=== PATIENT | male | born 1955 | race Caucasian/White ===

== ENCOUNTER 2021-09-23 12:45 | Day surgery (SDC) | payer MEDICARE ==
[~2021-09-23] VITALS: Ht 185.4 cm; Wt 115.0 kg
[2021-09-23] MEDS ORDERED: AMLODIPINE-OLM1 EAC2 PO (12:56)
[2021-09-23] MEDS ORDERED: LIPITOR20 MG (12:57)
--- NOTE | 2021-09-23 15:54 | NUR ---
[facility] PACU WIDE AWAKE WITH NO C/O'S. ABD SOFT. 1553 REPORT GIVEN TO JAZMINE SANTOS. 1555 DR AT BEDSIDE. ALL QUESTIONS ANSWERED.
--- NOTE | 2021-09-26 14:40 | OR ---
[facility] [address] [place], [place] [address] Signed DATE OF OPERATION: 09/23/2021 SURGEON: Yeimi Lai MD PREOPERATIVE DIAGNOSIS: Colon surveillance. POSTOPERATIVE DIAGNOSES: 1. Polyp at 40 cm (excised). 2. Scattered diverticula. PROCEDURE: Total colonoscopy to cecum with cold snare polypectomy x1 at 40 cm. ANESTHESIA: Intravenous sedation, fentanyl 100 mcg and Versed 4 mg. INDICATION: This 66-year-old white man is a patient DrCatherine Mcneil in [place], [place]. He last underwent colonoscopy in [place] [address] Channing Blount in the past as well. He says he has never had polyps on colonoscopy before. He is admitted at this time to undergo colonoscopy. He understands the risks of bleeding, infection, and perforation. Notably, he is symptom free currently and has no family history of colon cancer. FINDINGS: The prep was excellent. Complete colonoscopy was undertaken to the cecum without question. He had scattered diverticula throughout the colon, but very few in aggregate. There was a small polyp at 40 cm, which was excised with cold snare technique. There were no other findings of concern. DESCRIPTION OF PROCEDURE: The patient was brought to the endoscopy suite and placed in lateral decubitus position given intravenous sedation to the point of slurred speech and nystagmus. Digital rectal examination was normal. An Olympus videocolonoscope was passed in the rectum and manipulated throughout the colon noting a few scattered diverticula. Ultimately, the scope was passed into the cecum, which was insufflated with air and irrigation undertaken. The appendiceal orifice and ileocecal valve were normal. Passage of the scope into the ileum was Electronically Signed By: YEIMI LAI MD 09/26/21 1440 PATIENT NAME: YEIMI THOMAS OPERATIVE REPORT DATE OF : 55 REPORT #: [id number] PHYSICIAN: YEIMI LIA MD PCP: YEIMI MCNEIL MD REPORT IS CONFIDENTIAL AND NOT TO BE RELEASED WITHOUT AUTHORIZATION [facility] [address] [place], [place] [address] Signed accomplished without problem showing normal ileal mucosa. The scope was withdrawn from that point. Examination throughout showed no sign of abnormality until about 40 cm from the anal verge where a small sessile polyp was noted. This may represent hyperplasia. It was excised with cold snare technique without problem and passed for pathology. Further withdrawal of scope showed no other abnormality, only a few scattered diverticula. Retroflexed view of the rectum was normal. Scope was removed. The patient was taken to the recovery room in good condition concluding diagnosis polyps x1 and scattered diverticula. PLAN: Recommend repeat colonoscopy in 5 years or sooner if clinically indicated. He will return to the ongoing care of Dr. Mcneil in [place]. MD MATTY Petit/MACKENZIE /[id number] cc: Yeimi Mcneil MD Copies: YEIMI MCNEIL MD ~ Electronically Signed By: YEIMI LAI MD 09/26/21 8008 PATIENT NAME: YEIMI THOMAS OPERATIVE REPORT DATE OF : 55 REPORT #: [id number] PHYSICIAN: YEIMI LAI MD PCP: YEIMI MCNEIL MD REPORT IS CONFIDENTIAL AND NOT TO BE RELEASED WITHOUT AUTHORIZATION
== END 2021-09-23 16:10 | disposition home or self-care (01) ==
LOC: OPS 12:45 → DS 12:45 → OPS 14:00
PROVIDERS: ATTEND Surgery
PROC: 0DBE8ZX Excision of Large Intestine, Via Natural or Artificial Opening Endoscopic, Diagnostic (ICD-10-PCS; principal; 2021-09-23 14:00)
DX: Z12.11 Encounter for screening for malignant neoplasm of colon (principal); D12.6 Benign neoplasm of colon, unspecified; K57.30 Diverticulosis of large intestine without perforation or abscess without bleeding; Z88.8 Allergy status to other drugs, medicaments and biological substances; Z91.040 Latex allergy status; E78.5 Hyperlipidemia, unspecified; E66.01 Morbid (severe) obesity due to excess calories; I10 Essential (primary) hypertension; Z68.36 Body mass index [BMI] 36.0-36.9, adult; Z85.828 Personal history of other malignant neoplasm of skin
CPT/HCPCS: 99153; G0500; J2250; J3010; J7121

== ENCOUNTER 2024-09-27 10:19 | Day surgery (SDC) | payer MEDICARE ==
[2024-09-25 08:27] VITALS: BP 138/74
[~2024-09-27] VITALS: Ht 182.9 cm; Wt 122.0 kg
[~2024-09-27 10:19] MED LIST: AMLODIPINE BES2.5 MG PO; AMLODIPINE-OLM1 EAC2 PO; IBLOOD GLUCOSE TEST STRIP 1 EA TEST VI PRN; LACTATED RINGER'S 1,000 ML IV SCH; LIDOCAINE HCL 1% 5 ML SDV INJ ONE; LIPITOR20 MG; MULTIVITAMIN1 EACH PO; ROSUVASTATIN CAL5 MG PO; VAZALORE81 MG PO
[2024-09-27 10:36] VITALS: BP 131/80
[2024-09-27 10:52] LABS: BASOPHILS 0.4 % (0.2-1.2); EOSINOPHILS 1.0 % (0.8-7.0); LYMPHOCYTES 20.6 % (21.8-53.1); MCH 30.8 PG (25.7-32.2); MCHC 34.4 g/dL (32.3-36.5); MCV 89.5 fL (79.0-92.2); MONOCYTES 6.7 % (5.3-12.2); NEUTROPHILS 70.8 % (34.0-67.9); RBC 4.48 M/uL (4.63-6.08)
[2024-09-27 11:09] LABS: ALT (SGPT) 59.0 U/L (14-59); AST (SGOT) 27.0 U/L (15-37); GLOMERULAR FILTRATION RATE,EST 88.0 mL/min (>60); LACTATE DEHYDROGENASE 118.0 U/L (85-227); PROTEIN, TOTAL 8.1 g/dL (6.4-8.2); UREA NITROGEN 15.0 mg/dL (7-18)
[2024-09-27] MEDS ORDERED: LIDOCAINE HCL 2% 5 ML SDV ONE (11:47)
[2024-09-27 12:58] VITALS: BP 121/73
--- NOTE | 2024-09-27 13:05 | NUR ---
09/27/24 1305 [facility] 1224 PT ARRIVED IN PACU LAYING IN PRONE POSITIONE. 1225 REPOSITIONED TO L SIDE AND TALKING TO STAFF. NO C/O'S. 1230 SITTING AT BEDSIDE. DC INSTRUCTIONS GIVEN. ALL QUESTIONS ANSWERED. 1235 GETTING DRESSED. 1243 LEFT VIA W/C.
[2024-09-28 11:37] LABS: BETA-2-MICROGLOBULIN,SER/PLAS 2.2 mg/L (<=3.0)
[2024-09-28 13:07] LABS: KAPPA QNT FREE LIGHT CHAINS 56.32 mg/L (3.30-19.40); KAPPA/LAMBDA FREE LIGHT CH RAT 4.29 (0.26-1.65); LAMBDA QNT FREE LIGHT CHAINS 13.14 mg/L (5.71-26.30)
[2024-09-30 20:27] LABS: ALPHA 1 GLOBULIN 0.35 g/dL (0.19-0.46); ALPHA 2 GLOBULIN 0.71 g/dL (0.48-1.05); BETA GLOBULIN 0.77 g/dL (0.48-1.10); GAMMA 1.28 g/dL (0.62-1.51); IMMUNOFIXATION REFLEX IFE Done (())
--- NOTE | 2024-09-30 21:55 | PATH ---
[facility] [address] [facility] [place], [place] [address] Signed SPECIMEN(S): A BONE MARROW - CORE SPECIMEN(S): B BONE MARROW - ASPIRATION SPECIMEN(S): C FLOW CYTOMETRY, BM EDTA CLINICAL HISTORY: 69 year old male with IgM kappa on SPEP. Monoclonal gammopathy of undetermined significance, IgM DIAGNOSIS SUMMARY: Peripheral blood - Mild leukocytosis. Absolute lymphocyte count 2,100/ul. - No dyspoiesis, atypical lymphocytes, or blasts identified. Bone marrow biopsy and aspiration: - Hypercellular marrow, 70%, with less than 1% blasts. - Trilineage hematopoiesis with no significant dyspoiesis. - Flow cytometry detects a 13%population of kappa restricted B-cells consistent with lymphoproliferative disorder, suspicious for lymphoplasmacytic lymphoma. - See diagnostic comment. DIAGNOSTIC COMMENT: The history of IgM [place] M-spike is noted. 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 However, no lymphoproliferative neoplasm is detected in the bone marrow by morphology or immunohistochemistry. This discrepancy may be related to sampling issues. A MYD88 mutation study and chromosome analysis are pending at the time of this report. The results will be reported via addendum. The hypercellular marrow might be related to possible splenomegaly and correlation with imaging is suggested. HISTORICAL SUMMARY: 69 yo male with no prior hematology case history in the [employer] database. He was discovered with an IgM-kappa 0.7 gm/dl M-spike. He presents for further evaluation via bone marrow. Absolute lymphocyte count 2,100/ul. PERIPHERAL BLOOD: HEMOGRAM (09/27/2024): WBC 10.19 K/ul, RBC 4.48 M/ul, HGB 13.8 g/dl, HCT 40.1%, MCV 89.5 fl, MCH 30.8 pg, MCHC 34.4 g/dl, RDW 13.8%, PLT 237 K/ul. Absolute lymphocyte count PATIENT NAME: YEIMI THOMAS PATHOLOGY DATE OF : 55 REPORT #: [id number] PHYSICIAN: ANA PATHOLOGY PCP: YEIMI CHACON MD REPORT IS CONFIDENTIAL AND NOT TO BE RELEASED WITHOUT AUTHORIZATION [facility] [address] [place], [place] [address] Signed AUTOMATED DIFFERENTIAL COUNT: Neutrophils 70.8%, lymphocytes 20.6%, monocytes 6.7%, eosinophils 1.0%, basophils 0.4%. The red blood cells are normocytic and normochromic with minimal aniso-poikilocytosis. The neutrophils are unremarkable. Lymphocytes are composed of small mature appearing forms. Platelets appear normal in number and morphology with no platelet clumping or RBC microangiopathic effect identified. No blasts are identified. BONE MARROW: ASPIRATE SMEARS/TOUCH IMPRINT: The aspirate smears are adequate for evaluation. Scattered erythroid precursors show adequate maturation with essentially normal morphology. The myeloid precursors show full maturation with unremarkable morphology. There is no increase in blasts. Megakaryocytes are identified with a normal morphology. BONE MARROW DIFFERENTIAL COUNT (300 cells): Blasts 1%. promyelocytes 1%, myelocytes 2%, metamyelocytes/bands/segs 46%, erythroid precursors 26%, lymphocytes 14%, monocytes 3%, eosinophils 7%, plasma cells 1%. M:E ratio: 2.2:1 BONE MARROW CORE BIOPSY/ASPIRATE CLOT/CELL BLOCK: The aspirate clot section (focal marrow spicules) and the core biopsy are adequate for evaluation. The core biopsy demonstrates unremarkable trabecular bone. The cellularity is increased for age, estimated at 70%. The erythroid precursors are within normal limits with essentially unremarkable maturation. The myeloid precursors are unremarkable with no significant dyspoiesis. Blasts are not increased. Megakaryocytes appear normal in number and in morphology. No granulomas or foreign malignant cells are detected. A single small lymphoid aggregate is noted. SPECIAL STAINS (with adequate controls): - iron (aspirate smear): No smear is submitted for evaluation. - iron (cell block): Negative for marrow iron by Prussian Blue staining. IMMUNOHISTOCHEMISTRY STAINS (performed on block A1 with adequate controls). - PAX5: 3% with focal atypical aggregate - CD3: 5%, no atypical aggregates. - CD5: 5%, no atypical aggregates - CD10: Negative - CD138: Less than 1% - Ki-67: Unremarkable. - PAZ [place] and Lambda: Polyclonal in plasma cells. Negative in lymphocytes. FLOW CYTOMETRY: PATIENT NAME: YEIMI THOMAS PATHOLOGY DATE OF : 55 REPORT #: [id number] PHYSICIAN: ANA PATHOLOGY PCP: YEIMI CHACON MD REPORT IS CONFIDENTIAL AND NOT TO BE RELEASED WITHOUT AUTHORIZATION [facility] [address] [place] [address] Signed Bone marrow, flow cytometry: - CD5 negative, CD10 negative, kappa restricted B-cell lymphoproliferative disorder. - See comment. COMMENT: 13% of all analyzed cells are kappa restricted B-cells. These B-cells are positive for CD19, CD20 (moderate), and CD22. There is no significant expression of CD5, CD10, CD23, CD11c, CD25, CD103, and CD123. This pattern of marking has a differential diagnosis of lymphoplasmacytic lymphoma, marginal zone lymphoma, or CD10 negative DLBCL. Given a history of IgM M-spike, a diagnosis of lymphoplasmacytic lymphoma is favored. Correlation with histologic findings is required. The T-cell population is unremarkable. Blasts are not increased. FLOW CYTOMETRY ANALYSIS: FLOW DIFFERENTIAL (% Total CD45 vs. SSC gating): Myeloid 63%; Lymphoid 22%; Monocyte 2%; Dim CD45/Blast: 1%. Cell Count: 6.7 x 10*3/uL. POPULATION ANALYSIS: BLASTS: Analysis of the dim CD45 gate demonstrates 1% myeloblasts by CD34/CD117 and 1% hematogones. LYMPHOID CELLS: The lymphocyte gate comprises 22% of total events and includes 32% T-cells with a CD4:CD8 ratio of 1.9:1 and normal encarnacion T-cell antigen expression. 61% of lymphocytes (13% of total events) are kappa-restricted B-cells expressing CD45 MOD, CD19 MOD, CD20 MOD, CD22 DIM, CD38 DIM (variable), and KAPPA BR while negative for CD5, CD10, CD23, CD11c, CD25, CD103, and CD123. The remainders are NK-cells. MYELOID CELLS: The myeloid population comprises 63% of the total events. No aberrant or immature immunophenotypic expression is detected. MONOCYTES: The monocyte population comprises 2% of the total events. Monocytes are not increased. No aberrant immunophenotypic expression is detected. PLASMA CELLS: An increased number of atypical plasma cells are observed in the screening gate of CD45 neg-dim/CD38. For this reason, select additional antibodies are run to further characterize the plasma cells. <0.1% ckappa-restricted plasma cells are detected (n=49) expressing CD45 DIM-NEG, CD38 BR, CD138 DIM CD19 MOD, CD20 DIM, cKAPPA BR while negative for CD56. A background polytypic plasma cell population is observed demonstrating slightly brighter CD38 and CD138 without CD20 expression. ANTIBODIES USED: Initial Antibodies Used: KAPPA, LAMBDA, CD20, CD10, CD19, CD23, CD38, CD16, PATIENT NAME: YEIMI THOMAS PATHOLOGY DATE OF : 55 REPORT #: [id number] PHYSICIAN: ANA PATHOLOGY PCP: YEIMI CHACON MD REPORT IS CONFIDENTIAL AND NOT TO BE RELEASED WITHOUT AUTHORIZATION [facility] [address] [place], [place] [address] Signed CD56, CD8, CD5, CD2, CD4, CD7, CD3, CD14, CD33, CD13, HLADR, CD34, CD117, CD15, CD45. Additional Antibodies (necessary for further classification of the B-lymphocytes): CD103, CD11c, CD25, CD22, CD123. Additional Antibodies (necessary for further plasma cell analysis): ckappa, clambda, CD138. Total Antibodies Used: 31. TCS FINAL DIAGNOSIS OF FLOW CYTOMETRY PERFORMED BY: Antony Trent MD, Sep 28 2024 3:16PM CYTOGENETICS: Chromosome analysis is pending. MOLECULAR / PCR: A mutation study for MYD88 is pending. GROSS DESCRIPTION: Two specimens are received in two containers A. The specimen, labeled and designated "Garcia, bone marrow core biopsy," is received in formalin and consists of one perez cylindrical core of bone that is 1.2 cm long and 0.2 cm in diameter. After decalcification in Immunocal the specimen is entirely submitted in (A1). B. The specimen, labeled and designated "Garcia, bone marrow clot," is received in formalin and consists of a 1.7 x 0.8 x 0.4 cm aggregate of red brown clot material. Entirely submitted in (B1). JS (under the direct supervision of a pathologist) The Gross Description was prepared using a voice recognition system. The report was reviewed for accuracy; however, sound-alike word errors, addition and/or deletions may occur. If there is any question about this report, please contact Client Services. ADDITIONAL NOTES: Immunohistochemical and/or in situ hybridization studies if performed in this case included appropriate positive controls that reacted as expected. This test was developed and its performance characteristics determined by [facility]. It has not been cleared or approved by the U.S. Food and Drug Administration. The FDA has determined that such clearance or approval is not necessary. This test is used for clinical purposes. It should not be regarded as investigational or for research. [facility] is certified under the PATIENT NAME: YEIMI THOMAS PATHOLOGY DATE OF : 55 REPORT #: [id number] PHYSICIAN: ANA PATHOLOGY PCP: YEIMI CHACON MD REPORT IS CONFIDENTIAL AND NOT TO BE RELEASED WITHOUT AUTHORIZATION [address] [address] Signed Clinical Laboratory Improvement Amendments of 1988 (CLIA) as qualified to perform high complexity clinical laboratory testing. In this case, certain antibodies were performed by both immunohistochemistry and flow cytometry analysis because flow cytometry analysis did not fully explain all the light microscopic findings. Immunohistochemistry aided in the analysis. Both methods are deemed medically necessary in this case. This test was developed and its performance characteristics determined by [facility]. It has not been cleared or approved by the US Food and Drug Administration. The FDA does not require this test to go through premarket FDA review. This test is used for clinical purposes. It should not be regarded as investigational or for research. This laboratory is certified under the Clinical Laboratory Improvement Amendments (CLIA) as qualified to perform high complexity clinical laboratory testing. PERFORMING LABORATORY: The technical preparation of flow cytometry was performed by [facility], [address] [place] [id number] (CLIA#:� [id number]). Professional interpretation was performed by [facility], [address] [place] [id number] (CLIA#: [id number]). Technical component was performed by [facility], [address] [place] [address] (CLIA# [id number]). IMAGES: [id number]: [id number]: [id number] Diagnostician: Antony Trent MD Pathologist Electronically Signed 09/30/2024 Copies: ~ PATIENT NAME: YEIMI THOMAS PATHOLOGY DATE OF : 55 REPORT #: [id number] PHYSICIAN: [email or web address] REY PCP: YEIMI CHACON MD REPORT IS CONFIDENTIAL AND NOT TO BE RELEASED WITHOUT AUTHORIZATION
== END 2024-09-27 12:43 | disposition home or self-care (01) ==
LOC: OPS 10:19 → DS 10:19 → OPS 12:00 → DS 12:00 → OPS 12:43
PROVIDERS: ATTEND Specialist
PROC: 079T3ZX Drainage of Bone Marrow, Percutaneous Approach, Diagnostic (ICD-10-PCS; 2024-09-27)
PROC: 07DR3ZX Extraction of Iliac Bone Marrow, Percutaneous Approach, Diagnostic (ICD-10-PCS; principal; 2024-09-27 12:00)
DX: D47.2 Monoclonal gammopathy (principal); D72.829 Elevated white blood cell count, unspecified; I10 Essential (primary) hypertension; F17.290 Nicotine dependence, other tobacco product, uncomplicated; I73.9 Peripheral vascular disease, unspecified; M19.90 Unspecified osteoarthritis, unspecified site; K21.9 Gastro-esophageal reflux disease without esophagitis; M10.9 Gout, unspecified; Z79.82 Long term (current) use of aspirin; Z79.899 Other long term (current) drug therapy; Z88.8 Allergy status to other drugs, medicaments and biological substances; Z91.040 Latex allergy status
CPT/HCPCS: 01112; 36415; 80053; 82232; 83615; 85025; J2003; J2704